=== PATIENT | male | born 1975 | race American Indian/Alaskan Native ===

== ENCOUNTER 2017-10-14 12:08 | Emergency (ER) | payer SELFPAY ==
--- NOTE | 2017-10-14 15:15 | Vascular Lab Report ---
Left Lower Extremity Venous Duplex Study: Reason for Exam: Pain and swelling of the left lower extremity. Comments on the Right: A limited duplex study was done of the proximal veins of the right lower extremity. All veins visualized are freely compressible without evidence of internal echogenicity. Flow is spontaneous and phasic throughout. No evidence of acute or chronic thrombus is seen in any of the vessels visualized. Comments on the Left: All veins visualized are freely compressible without evidence of internal echogenicity. Flow is spontaneous and phasic throughout. No evidence of acute or chronic thrombus is seen in any of the vessels visualized. Inguinal adenopathy is noted. Impression: No evidence of acute or chronic deep venous thrombosis in the left lower extremity.
--- NOTE | 2017-10-14 15:53 | Emergency Department Report ---
Chief Complaint: Extremity Problem,Nontraumatic Stated Complaint: LEG SWELLING Time Seen by Provider: 10/14/17 13:02 - HPI History of Present Illness: is a 42-year-old after [place] male whose presenting with right legs swelling. Patient states that his left leg is more swollen than his right leg over the last 2 days. Patient denies any pain. Patient states that patient denies any trauma patient denies any fever as well as nausea vomiting diarrhea body ache and cough chest pain shortness of breath. Patient states that the leg feels tight and he has 5 out of 10 pain. Patient has a past medical history of diabetes and is on oral anti-hyperglycemic agents - Exam Vital Signs: Vital Signs 10/14/17 12:10 Temperature 97.8 F Pulse Rate 104 H Respiratory 16 Rate Blood Pressure 153/100 Blood Pressure 153/100 [Left] O2 Sat by Pulse 100 Oximetry Physical Exam: General exam normal no acute distress HEENT is within normal limits lungs clear to auscultation heart exam S1-S2 no murmurs gallops or rubs abdomen is soft nontender lower extremity exam 2+ edema bilateral lower extremities there is significantly more swelling in the left lower extremity compared to the right skin exam there is some hyperpigmentation to the anterior sorensen consistent with a past medical history of chronic diabetes MSE screening note: Focused history and physical exam performed. Due to findings the following was ordered: ED Medical Decision Making - Radiology Data Radiology results: report reviewed No DVT seen in the left lower extremity - Medical Decision Making Patient is a 42-year-old male who is presenting with leg swelling we did discuss peripheral dependent edema and measures that will help of the patient's discomfort he will be referred to vascular surgery. Patient will also be started on low-dose Lasix for the next several days. ED Disposition for MSE Clinical Impression: Dependent edema Disposition: DC-01 TO HOME OR SELFCARE Is pt being admited?: No Does the pt Need Aspirin: No Condition: Fair Instructions: Leg Edema (ED) Prescriptions: Furosemide [Lasix] 20 mg PO QDAY 5 Days tablet HYDROcodone/ACETAMINOPHEN [[place] 5-325 Tablet] 1 each PO Q4-6H #15 tablet Referrals: PRIMARY CARE, [Primary Care Provider] - 3-5 Days
[2017-10-14 16:22] VITALS: BP 137/87
== END 2017-10-14 16:20 | disposition home or self-care (01) ==
LOC: ED 12:08
DX: M79.89 Other specified soft tissue disorders (principal)

== ENCOUNTER 2017-10-18 10:31 | Inpatient (IN) | payer SELFPAY ==
[2017-10-18 11:32] LABS: Hematocrit 39.9 % (35.5-45.6); Hemoglobin 13.3 gm/dl (11.8-15.2); Mean Corpuscular HGB Conc 33 % (32-34); Mean Corpuscular Hemoglobin 31 pg (28-32); Mean Corpuscular Volume 92 fl (84-94); Platelet Count 308 K/mm3 (140-440); Red Blood Count 4.32 M/mm3 (3.65-5.03); Red Cell Distribution Width 12.9 % (13.2-15.2); White Blood Count 9.7 K/mm3 (4.5-11.0)
[2017-10-18 11:45] LABS: Anion Gap 17 mmol/L; BUN/Creatinine Ratio 10; Blood Urea Nitrogen 9 mg/dL (9-20); Calcium 8.8 mg/dL (8.4-10.2); Carbon Dioxide 27 mmol/L (22-30); Chloride 92.4 mmol/L (98-107); Glucose 480 mg/dL (75-100); Potassium 4.1 mmol/L (3.6-5.0); Sodium 132 mmol/L (137-145)
[2017-10-18] MEDS ORDERED: NACL 0.9% 1000 ML 1,000 ML IV ONE (13:41)
[2017-10-18] MEDS ORDERED: ZOFRAN IV ONE (13:42)
[2017-10-18] MEDS ORDERED: MORPHINE IV ONE (13:42)
[2017-10-18] MEDS ORDERED: VANCOMYCIN/NS 1 GM/250 ML 1 GM/250 ML BAG IV ONE (13:43)
[2017-10-18] MEDS ORDERED: TORADOL IV ONE (13:43)
[2017-10-18] MEDS ORDERED: VANCOMYCIN 2,000 MG in NACL 0.9% 500 ML 500 ML IV SCH (14:15)
[2017-10-18] MEDS ORDERED: VANCOMYCIN 2,000 MG in NACL 0.9% 500 ML 500 ML IV ONE (14:15)
--- NOTE | 2017-10-18 14:26 | Emergency Department Report ---
ED Extremity Problem HPI - General Chief complaint: Extremity Injury, Lower Stated complaint: LEG EDEMA Time Seen by Provider: 10/18/17 13:07 Source: patient Mode of arrival: Ambulatory Limitations: No Limitations - History of Present Illness Initial comments: 42 year-old male the past medical history of [id number] diabetes presents to the hospital with complaints of worsening left leg edema and pain. Patient was seen and evaluated here on the for similar symptoms. He had a negative Doppler of the left leg and received Lasix 5 days and [place] for pain with outpt vascular f/u. He has continued to have worsening swelling and pain despite treatment. Complains of some purulent drainage from a wound on the leg. Patient states that for the past one month he has had intermittent swelling of his leg but for the last 3 days it has been gradually worsening and persistent. He initially thought maybe he was bitten by insects because he was having some drainage from his leg. He denies fever or trauma. Patient states he is compliant with his metformin and glipizide. His glucose typically in the 200-300 range.. Positive weight gain reported compared to visit days ago despite taking Lasix. Denies chest pain or shortness of breath. PMD: None Severity scale (0 -10): 8 - Related Data Previous Rx's Medication Instructions Recorded Last Taken Type Cyclobenzaprine [Flexeril] 10 mg PO TID PRN #20 tablet 07/04/16 Unknown Rx Ibuprofen [Motrin 800 MG tab] 800 mg PO Q8HR PRN #30 tablet 07/04/16 Unknown Rx Cyclobenzaprine [Flexeril] 10 mg PO TID PRN #15 tablet 09/02/16 Unknown Rx Ibuprofen [Motrin] 800 mg PO Q8HR PRN #15 tablet 09/02/16 Unknown Rx Furosemide [Lasix] 20 mg PO QDAY 5 Days tablet 10/14/17 Unknown Rx HYDROcodone/ACETAMINOPHEN [[place] 1 each PO Q4-6H #15 tablet 10/14/17 Unknown Rx 5-325 Tablet] Allergies Allergy/AdvReac Type Severity Reaction Status Date / Time No Known Allergies Allergy Verified 07/04/16 04:05 ED Review of Systems ROS: Stated complaint: LEG EDEMA Other details as noted in HPI Comment: All other systems reviewed and negative Other: Constitutional: No fevers chills Eyes: No eye pain visual changes ENT: No ear pain or throat pain Neck: Denies pain Respiratory: Denies cough wheezing shortness of breath Cardiovascular: Denies chest pain, palpitations, syncope GI: Denies abdominal pain, nausea, vomiting, diarrhea : Denies dysuria Musculoskeletal: as per hpi Skin: as per hpi Neurologic: Denies headache, numbness, weakness Psychiatric: Denies suicidal ideation, hallucinations ED Past Medical Hx - Past Medical History Hx Diabetes: Yes - Social History Smoking Status: Never Smoker Substance Use Type: None - Medications Home Medications: Home Medications Medication Instructions Recorded Confirmed Last Taken Type Cyclobenzaprine [Flexeril] 10 mg PO TID PRN #20 tablet 07/04/16 Unknown Rx Ibuprofen [Motrin 800 MG tab] 800 mg PO Q8HR PRN #30 tablet 07/04/16 Unknown Rx Cyclobenzaprine [Flexeril] 10 mg PO TID PRN #15 tablet 09/02/16 Unknown Rx Ibuprofen [Motrin] 800 mg PO Q8HR PRN #15 tablet 09/02/16 Unknown Rx Furosemide [Lasix] 20 mg PO QDAY 5 Days tablet 10/14/17 Unknown Rx HYDROcodone/ACETAMINOPHEN [[place] 1 each PO Q4-6H #15 tablet 10/14/17 Unknown Rx 5-325 Tablet] ED Physical Exam - General Limitations: No Limitations - Other Other exam information: General: No limitations, patient is alert in no acute distress Head exam: Atraumatic, normocephalic Eyes exam: Normal appearance ENT: Moist mucous membrane, normal oropharynx Neck exam: Normal inspection, full range of motion Respiratory exam: Clear to auscultation bilateral, no wheezes, rales, crackles Cardiovascular: Normal rate and rhythm, normal heart sounds Abdomen: Soft, nondistended, and nontender, with normal bowel sounds, no rebound, or guarding Extremity: Significant left leg edema with erythema, warmth, and tenderness. Circular area at the lateral left lower leg with drainage. 2+ DP pulse Back: Normal Inspection, full range of motion, no tenderness Neurologic: Alert, oriented x3, cranial nerves intact, no motor or sensory deficit Psychiatric: normal affect, normal mood Skin: Warm, dry, intactMinimal physician ED Course Vital Signs 10/18/17 10/18/17 10:47 10:53 Temperature 99 F Pulse Rate 119 H Blood Pressure 135/90 [Right] O2 Sat by Pulse 100 Oximetry - Reevaluation(s) Reevaluation #1: 10/18/17 15:20 in ed treated with Morphine zofran IV vancomycin Insulin for hyperglycemia pending labs crp lft blood cultures 10/18/17 15:27 ED Medical Decision Making - Lab Data Result diagrams: 10/18/17 10:55 10/18/17 11:03 Lab Results 10/18/17 10/18/17 10/18/17 Range/Units 10:55 11:03 14:33 WBC 9.7 (4.5-11.0) K/mm3 RBC 4.32 (3.65-5.03) M/mm3 Hgb 13.3 (11.8-15.2) gm/dl Hct 39.9 (35.5-45.6) % MCV 92 (84-94) fl MCH 31 (28-32) pg MCHC 33 (32-34) % RDW 12.9 L (13.2-15.2) % Plt Count 308 (140-440) K/mm3 ESR 65 (0-20) mm/Hr Sodium 132 L (137-145) mmol/L Potassium 4.1 (3.6-5.0) mmol/L Chloride 92.4 L (98-107) mmol/L Carbon Dioxide 27 (22-30) mmol/L Anion Gap 17 mmol/L BUN 9 (9-20) mg/dL Creatinine 0.9 (0.8-1.5) mg/dL Estimated GFR > 60 ml/min BUN/Creatinine Ratio 10 % Glucose 480 H (75-100) mg/dL Calcium 8.8 (8.4-10.2) mg/dL - Radiology Data Radiology results: image reviewed (read by me) interpreted by me: read by me xr left tib fib: soft tissue edema - Medical Decision Making Plan to admit patient to hospital for hyperglycemia with poorly controlled diabetes and cellulitis. Hospitalist informed - Differential Diagnosis cellulitis, DVT, renal failure, lymphedema Critical Care Time: No Critical care attestation.: If time is entered above; I have spent that time in minutes in the direct care of this critically ill patient, excluding procedure time. ED Disposition Clinical Impression: Left leg cellulitis, Uncontrolled diabetes mellitus, Leg edema, left Disposition: DC-09 OP ADMIT IP TO THIS HOSP Is pt being admited?: Yes Condition: Stable Time of Disposition: 14:26 (DR Plata/hosp)
--- NOTE | 2017-10-18 15:39 | XRay Report ---
FINAL REPORT PROCEDURE: XR TIBIA FIBULA 2V LT TECHNIQUE: LEFT tibia and fibula radiographs, AP and lateral views. CPT 23915 HISTORY: left leg infection COMPARISON: No prior studies are available for comparison. FINDINGS: The cortical and trabecular pattern of the tibia and fibula appears normal. There is no fracture identified. No focal bone loss or abnormal periosteal reaction is seen. There does appear to be mild subcutaneous edema present. A few small phleboliths are present in the soft tissues anterior to the tibia. Mild degenerative changes are present in the knee and in the ankle. IMPRESSION: No acute bony abnormalities are identified. Mild degenerative changes are present in the ankle and knee. No abnormal focal bone loss or abnormal periosteal reaction is seen to suggest osteomyelitis. Mild subcutaneous edema is visualized. No radiopaque foreign bodies are identified..
[2017-10-18] MEDS ORDERED: FLEXERIL PO PRN (16:44)
[2017-10-18] MEDS ORDERED: MOTRIN PO PRN (16:44)
--- NOTE | 2017-10-18 16:44 | History and Physical Report ---
History of Present Illness Date of examination: 10/18/17 Date of admission: 10/18/17 14:26 Chief complaint: CC: L leg swelling and drainage for 3 days History of present illness: History of Present Illness 42 year-old male the past medical history of [id number] diabetes presents to the hospital with complaints of worsening left leg edema and pain. Patient was seen and evaluated here on the for similar symptoms. He had a negative Doppler of the left leg and received Lasix 5 days and [place] for pain with outpt vascular f/u. He has continued to have worsening swelling and pain despite treatment. Complains of some purulent drainage from a wound on the leg. Patient states that for the past one month he has had intermittent swelling of his leg but for the last 3 days it has been gradually worsening and persistent. He initially thought maybe he was bitten by insects because he was having some drainage from his leg. He denies fever or trauma. Patient states he is compliant with his metformin and glipizide. His glucose typically in the 200-300 range.. Positive weight gain reported compared to visit days ago despite taking Lasix. Denies chest pain or shortness of breath. PMD: None Severity scale (0 -10): 8 Past Medical History Hx Diabetes: Yes Social History Smoking Status: Never Smoker Substance Use Type: None Medications Home Medications: Home Medications Medication Instructions Recorded Confirmed Last Taken Type Cyclobenzaprine [Flexeril] 10 mg PO TID PRN #20 tablet 07/04/16 Unknown Rx Ibuprofen [Motrin 800 MG tab] 800 mg PO Q8HR PRN #30 tablet 07/04/16 Unknown Rx Cyclobenzaprine [Flexeril] 10 mg PO TID PRN #15 tablet 09/02/16 Unknown Rx Ibuprofen [Motrin] 800 mg PO Q8HR PRN #15 tablet 09/02/16 Unknown Rx Furosemide [Lasix] 20 mg PO QDAY 5 Days tablet 10/14/17 Unknown Rx HYDROcodone/ACETAMINOPHEN [[place] 1 each PO Q4-6H #15 tablet 10/14/17 Unknown Rx 5-325 Tablet] Review of Systems Stated complaint: LEG EDEMA Other details as noted in HPI Comment: All other systems reviewed and negative Other: Constitutional: No fevers chills Eyes: No eye pain visual changes ENT: No ear pain or throat pain Neck: Denies pain Respiratory: Denies cough wheezing shortness of breath Cardiovascular: Denies chest pain, palpitations, syncope GI: Denies abdominal pain, nausea, vomiting, diarrhea : Denies dysuria Musculoskeletal: as per hpi Skin: as per hpi Neurologic: Denies headache, numbness, weakness Psychiatric: Denies suicidal ideation, hallucinations Medications and Allergies Allergies Allergy/AdvReac Type Severity Reaction Status Date / Time No Known Allergies Allergy Verified 07/04/16 04:05 Home Medications Medication Instructions Recorded Confirmed Last Taken Type Cyclobenzaprine [Flexeril] 10 mg PO TID PRN #20 tablet 07/04/16 10/18/17 Unknown Rx Ibuprofen [Motrin 800 MG tab] 800 mg PO Q8HR PRN #30 tablet 07/04/16 10/18/17 Unknown Rx Cyclobenzaprine [Flexeril] 10 mg PO TID PRN #15 tablet 09/02/16 10/18/17 Unknown Rx Ibuprofen [Motrin] 800 mg PO Q8HR PRN #15 tablet 09/02/16 10/18/17 Unknown Rx Furosemide [Lasix] 20 mg PO QDAY 5 Days tablet 10/14/17 10/18/17 Unknown Rx HYDROcodone/ACETAMINOPHEN [[place] 1 each PO Q4-6H #15 tablet 10/14/17 10/18/17 Unknown Rx 5-325 Tablet] Exam - Constitutional Vitals: Temp Pulse Resp BP Pulse Ox 100.0 F H 104 H 16 126/78 98 10/18/17 16:11 10/18/17 16:11 10/18/17 16:11 10/18/17 16:11 10/18/17 16:11 General appearance: Present: no acute distress, well-nourished - EENT Eyes: Present: PERRL ENT: hearing intact, clear oral mucosa - Neck Neck: Present: supple, normal ROM - Respiratory Respiratory effort: normal Respiratory: bilateral: CTA - Cardiovascular Heart rate: 80 Rhythm: regular Heart Sounds: Present: S1 & S2. Absent: rub, click - Extremities Extremities: no ischemia, pulses intact, pulses symmetrical, No edema, abnormal (LLE red and Hyperpigmented from Mid Calf to ankle) Peripheral Pulses: within normal limits - Abdominal General gastrointestinal: Present: soft, non-tender, non-distended, normal bowel sounds Male genitourinary: Present: normal - Integumentary Integumentary: Present: clear, warm, dry - Musculoskeletal Musculoskeletal: gait normal, strength equal bilaterally - Psychiatric Psychiatric: appropriate mood/affect, intact judgment & insight - Neurologic Neurologic: CNII-XII intact, moves all extremities - Allied Health Allied health notes reviewed: nursing, case management Results - Labs CBC & Chem 7: 10/19/17 05:08 10/19/17 05:08 Labs: Laboratory Last Values WBC 9.7 K/mm3 (4.5-11.0) 10/18/17 10:55 RBC 4.32 M/mm3 (3.65-5.03) 10/18/17 10:55 Hgb 13.3 gm/dl (11.8-15.2) 10/18/17 10:55 Hct 39.9 % (35.5-45.6) 10/18/17 10:55 MCV 92 fl (84-94) 10/18/17 10:55 MCH 31 pg (28-32) 10/18/17 10:55 MCHC 33 % (32-34) 10/18/17 10:55 RDW 12.9 % (13.2-15.2) L 10/18/17 10:55 Plt Count 308 K/mm3 (140-440) 10/18/17 10:55 ESR 65 mm/Hr (0-20) 10/18/17 14:33 Sodium 132 mmol/L (137-145) L 10/18/17 11:03 Potassium 4.1 mmol/L (3.6-5.0) 10/18/17 11:03 Chloride 92.4 mmol/L (98-107) L 10/18/17 11:03 Carbon Dioxide 27 mmol/L (22-30) 10/18/17 11:03 Anion Gap 17 mmol/L 10/18/17 11:03 BUN 9 mg/dL (9-20) 10/18/17 11:03 Creatinine 0.9 mg/dL (0.8-1.5) 10/18/17 11:03 Estimated GFR > 60 ml/min 10/18/17 11:03 BUN/Creatinine Ratio 10 % 10/18/17 11:03 Glucose 480 mg/dL (75-100) H 10/18/17 11:03 Calcium 8.8 mg/dL (8.4-10.2) 10/18/17 11:03 C-Reactive Protein 30.90 mg/dL (0.00-1.30) H 10/18/17 14:33 Short CBC 10/18/17 10/19/17 Range/Units 10:55 05:08 WBC 9.7 8.2 (4.5-11.0) K/mm3 Hgb 13.3 11.8 (11.8-15.2) gm/dl Hct 39.9 35.8 (35.5-45.6) % Plt Count 308 292 (140-440) K/mm3 BMP 10/18/17 10/19/17 11:03 05:08 Sodium 132 L 140 D Potassium 4.1 3.7 Chloride 92.4 L 100.6 Carbon Dioxide 27 26 BUN 9 7 L Creatinine 0.9 0.8 Glucose 480 H 259 H Calcium 8.8 8.3 L Liver Function 10/19/17 Range/Units 05:08 Total Bilirubin 0.60 (0.1-1.2) mg/dL AST 15 (5-40) units/L ALT 26 (7-56) units/L Alkaline Phosphatase 72 (35-129) units/L Albumin 2.8 L (3.9-5) g/dL Assessment and Plan Advance Directives: Yes (Full code) VTE prophylaxis?: Chemical Plan of care discussed with patient/family: Yes - Patient Problems (1) Left leg cellulitis Current Visit: Yes Status: Acute Plan to address problem: Started on Unasyn and Vanco Will get ID and surgery consult (2) Leg edema, left Current Visit: Yes Status: Acute Plan to address problem: Doppler negative for DVT.Done couple of days ago. (3) Uncontrolled diabetes mellitus Current Visit: Yes Status: Chronic Qualifiers: Diabetes mellitus type: type 2 Plan to address problem: Adjust meds. May benefit from Lantus qhs 15 units (4) DVT prophylaxis Current Visit: Yes Status: Acute Plan to address problem: On Lovenox
[2017-10-18] MEDS ORDERED: DULCOLAX PR PRN (16:46)
[2017-10-18] MEDS ORDERED: MORPHINE IV PRN (16:46)
[2017-10-18] MEDS ORDERED: TYLENOL PO PRN (16:46)
[2017-10-18] MEDS ORDERED: MILK OF MAGNESIA PO PRN (16:46)
[2017-10-18] MEDS ORDERED: ZOFRAN IV PRN (16:46)
[2017-10-18] MEDS ORDERED: NORCO 5/325 PO PRN (17:00)
[2017-10-18] MEDS ORDERED: VANCOMYCIN PHARMACY TO DOSE IV SCH (18:00)
[2017-10-18] MEDS: UNASYN/NS 3 GM/100 ML 3 GM/100 ML BAG IV SCH ×2 (18:39→23:58)
[2017-10-18] MEDS: PEPCID IV SCH (21:04)
[2017-10-18] MEDS ORDERED: AMBIEN PO PRN (22:00)
[2017-10-18] MEDS: VANCOMYCIN VIAL 1,750 MG in NACL 0.9% 500 ML 500 ML IV SCH (22:11)
[2017-10-18] MEDS: NOVOLOG SUB-Q SCH (22:12)
[2017-10-19] MEDS: UNASYN/NS 3 GM/100 ML 3 GM/100 ML BAG IV SCH ×2 (05:32→19:53)
[2017-10-19 05:52] LABS: Basophils % (Auto) 0.2 % (0.0-1.8); Eosinophils % (Auto) 1.1 % (0.0-4.3); Hematocrit 35.8 % (35.5-45.6); Hemoglobin 11.8 gm/dl (11.8-15.2); Mean Corpuscular HGB Conc 33 % (32-34); Mean Corpuscular Hemoglobin 31 pg (28-32); Mean Corpuscular Volume 92 fl (84-94); Platelet Count 292 K/mm3 (140-440); Red Blood Count 3.88 M/mm3 (3.65-5.03); Red Cell Distribution Width 12.9 % (13.2-15.2); White Blood Count 8.2 K/mm3 (4.5-11.0)
[2017-10-19 06:12] LABS: Alanine Aminotransferase 26 units/L (7-56); Albumin 2.8 g/dL (3.9-5); Albumin/Globulin Ratio 0.8 %; Alkaline Phosphatase 72 units/L (35-129); Anion Gap 17 mmol/L; BUN/Creatinine Ratio 9; Blood Urea Nitrogen 7 mg/dL (9-20); Calcium 8.3 mg/dL (8.4-10.2); Carbon Dioxide 26 mmol/L (22-30); Chloride 100.6 mmol/L (98-107); Glucose 259 mg/dL (75-100); Potassium 3.7 mmol/L (3.6-5.0); Sodium 140 mmol/L (137-145); Total Protein 6.5 g/dL (6.3-8.2)
[2017-10-19] MEDS: VANCOMYCIN VIAL 1,750 MG in NACL 0.9% 500 ML 500 ML IV SCH ×3 (07:58→23:04)
--- NOTE | 2017-10-19 08:40 | Progress Note ---
<FLORENCE VIVEROS - Last Filed: 10/19/17 14:11> Assessment and Plan Assessment and plan: Patient is a 42 year-old male the past medical history of [id number] diabetes presents to the hospital with complaints of worsening left leg edema and pain. Patient was seen and evaluated here on the for similar symptoms. Left leg cellulitis Secondary to uncontrolled DM Continue on Unasyn and Vanco Infectious diseases following Surgery consult for possible incision and drainage of abscess wound care consult Sepsis Blood culture collected prior to antibiotic Follow blood cultures Continue empiric IV Unasyn and vancomycin Infectious diseases following Supportive care Leg edema, left DVT ruled out Unremarkable Doppler Unrmarkable Xray, no osteomyelitis Uncontrolled diabetes mellitus Patient A1c >17; diabetic education and nutrition is consult Patient insulin adjusted Accu-Chek before meals and at bedtime Sliding scale Insulin/NovoLog Continue Lantus qhs 15 units Malnutrition Nutrition consult DVT prophylaxis On Lovenox History Interval history: Patient complains left leg pain and rated his pain level 8/10. denies chest pain and shortness of breath.Labs and nursing notes reviewed. Hospitalist Physical - Constitutional Vitals: Temp Pulse Resp BP Pulse Ox 99.3 F 92 H 20 110/75 97 10/19/17 00:01 10/19/17 00:01 10/19/17 00:01 10/19/17 00:01 10/19/17 00:01 General appearance: Present: no acute distress - EENT Eyes: Present: PERRL ENT: hearing intact - Neck Neck: Present: supple - Respiratory Respiratory effort: normal Respiratory: bilateral: CTA - Cardiovascular Rhythm: regular Heart Sounds: Present: S1 & S2 - Extremities Extremity abnormal: other (Left leg wound) - Abdominal General gastrointestinal: soft, non-tender - Integumentary Integumentary: Present: clear (Left leg wound), warm, dry - Psychiatric Psychiatric: appropriate mood/affect - Neurologic Neurologic: moves all extremities - Allied Health Allied health notes reviewed: nursing Results - Labs CBC & Chem 7: 10/19/17 05:08 10/19/17 05:08 Labs: Laboratory Last Values WBC 8.2 K/mm3 (4.5-11.0) 10/19/17 05:08 RBC 3.88 M/mm3 (3.65-5.03) 10/19/17 05:08 Hgb 11.8 gm/dl (11.8-15.2) 10/19/17 05:08 Hct 35.8 % (35.5-45.6) 10/19/17 05:08 MCV 92 fl (84-94) 10/19/17 05:08 MCH 31 pg (28-32) 10/19/17 05:08 MCHC 33 % (32-34) 10/19/17 05:08 RDW 12.9 % (13.2-15.2) L 10/19/17 05:08 Plt Count 292 K/mm3 (140-440) 10/19/17 05:08 Lymph % (Auto) 21.0 % (13.4-35.0) 10/19/17 05:08 [place] % (Auto) 10.3 % (0.0-7.3) H 10/19/17 05:08 Eos % (Auto) 1.1 % (0.0-4.3) 10/19/17 05:08 Baso % (Auto) 0.2 % (0.0-1.8) 10/19/17 05:08 Lymph # 1.7 K/mm3 (1.2-5.4) 10/19/17 05:08 [place] # 0.8 K/mm3 (0.0-0.8) 10/19/17 05:08 Eos # 0.1 K/mm3 (0.0-0.4) 10/19/17 05:08 Baso # 0.0 K/mm3 (0.0-0.1) 10/19/17 05:08 Seg Neutrophils % 67.4 % (40.0-70.0) 10/19/17 05:08 Seg Neutrophils # 5.5 K/mm3 (1.8-7.7) 10/19/17 05:08 ESR 65 mm/Hr (0-20) 10/18/17 14:33 Sodium 140 mmol/L (137-145) D 10/19/17 05:08 Potassium 3.7 mmol/L (3.6-5.0) 10/19/17 05:08 Chloride 100.6 mmol/L (98-107) 10/19/17 05:08 Carbon Dioxide 26 mmol/L (22-30) 10/19/17 05:08 Anion Gap 17 mmol/L 10/19/17 05:08 BUN 7 mg/dL (9-20) L 10/19/17 05:08 Creatinine 0.8 mg/dL (0.8-1.5) 10/19/17 05:08 Estimated GFR > 60 ml/min 10/19/17 05:08 BUN/Creatinine Ratio 9 % 10/19/17 05:08 Glucose 259 mg/dL (75-100) H 10/19/17 05:08 POC Glucose 228 (70-105) H 10/19/17 06:38 Hemoglobin A1c 17.0 % (4-6) H 10/19/17 05:08 Calcium 8.3 mg/dL (8.4-10.2) L 10/19/17 05:08 Total Bilirubin 0.60 mg/dL (0.1-1.2) 10/19/17 05:08 AST 15 units/L (5-40) 10/19/17 05:08 ALT 26 units/L (7-56) 10/19/17 05:08 Alkaline Phosphatase 72 units/L (35-129) 10/19/17 05:08 C-Reactive Protein 30.90 mg/dL (0.00-1.30) H 10/18/17 14:33 Total Protein 6.5 g/dL (6.3-8.2) 10/19/17 05:08 Albumin 2.8 g/dL (3.9-5) L 10/19/17 05:08 Albumin/Globulin Ratio 0.8 % 10/19/17 05:08 <AALIYAH DSOUZA - Last Filed: 10/19/17 17:06> Hospitalist Physical - Constitutional Vitals: Temp Pulse Resp BP Pulse Ox 97.9 F 97 H 18 113/79 100 10/19/17 15:37 10/19/17 15:37 10/19/17 15:37 10/19/17 15:37 10/19/17 15:37 Results - Labs CBC & Chem 7: 10/19/17 05:08 10/19/17 05:08 Labs: Laboratory Last Values WBC 8.2 K/mm3 (4.5-11.0) 10/19/17 05:08 RBC 3.88 M/mm3 (3.65-5.03) 10/19/17 05:08 Hgb 11.8 gm/dl (11.8-15.2) 10/19/17 05:08 Hct 35.8 % (35.5-45.6) 10/19/17 05:08 MCV 92 fl (84-94) 10/19/17 05:08 MCH 31 pg (28-32) 10/19/17 05:08 MCHC 33 % (32-34) 10/19/17 05:08 RDW 12.9 % (13.2-15.2) L 10/19/17 05:08 Plt Count 292 K/mm3 (140-440) 10/19/17 05:08 Lymph % (Auto) 21.0 % (13.4-35.0) 10/19/17 05:08 [place] % (Auto) 10.3 % (0.0-7.3) H 10/19/17 05:08 Eos % (Auto) 1.1 % (0.0-4.3) 10/19/17 05:08 Baso % (Auto) 0.2 % (0.0-1.8) 10/19/17 05:08 Lymph # 1.7 K/mm3 (1.2-5.4) 10/19/17 05:08 [place] # 0.8 K/mm3 (0.0-0.8) 10/19/17 05:08 Eos # 0.1 K/mm3 (0.0-0.4) 10/19/17 05:08 Baso # 0.0 K/mm3 (0.0-0.1) 10/19/17 05:08 Seg Neutrophils % 67.4 % (40.0-70.0) 10/19/17 05:08 Seg Neutrophils # 5.5 K/mm3 (1.8-7.7) 10/19/17 05:08 ESR 65 mm/Hr (0-20) 10/18/17 14:33 Sodium 140 mmol/L (137-145) D 10/19/17 05:08 Potassium 3.7 mmol/L (3.6-5.0) 10/19/17 05:08 Chloride 100.6 mmol/L (98-107) 10/19/17 05:08 Carbon Dioxide 26 mmol/L (22-30) 10/19/17 05:08 Anion Gap 17 mmol/L 10/19/17 05:08 BUN 7 mg/dL (9-20) L 10/19/17 05:08 Creatinine 0.8 mg/dL (0.8-1.5) 10/19/17 05:08 Estimated GFR > 60 ml/min 10/19/17 05:08 BUN/Creatinine Ratio 9 % 10/19/17 05:08 Glucose 259 mg/dL (75-100) H 10/19/17 05:08 POC Glucose 278 (70-105) H 10/19/17 15:41 Hemoglobin A1c 17.0 % (4-6) H 10/19/17 05:08 Calcium 8.3 mg/dL (8.4-10.2) L 10/19/17 05:08 Total Bilirubin 0.60 mg/dL (0.1-1.2) 10/19/17 05:08 AST 15 units/L (5-40) 10/19/17 05:08 ALT 26 units/L (7-56) 10/19/17 05:08 Alkaline Phosphatase 72 units/L (35-129) 10/19/17 05:08 C-Reactive Protein 30.90 mg/dL (0.00-1.30) H 10/18/17 14:33 Total Protein 6.5 g/dL (6.3-8.2) 10/19/17 05:08 Albumin 2.8 g/dL (3.9-5) L 10/19/17 05:08 Albumin/Globulin Ratio 0.8 % 10/19/17 05:08
[2017-10-19] MEDS: NOVOLOG SUB-Q SCH ×4 (08:57→23:03)
[2017-10-19] MEDS: PEPCID IV SCH ×2 (09:20→21:23)
[2017-10-19] MEDS: LASIX PO SCH (09:23)
--- NOTE | 2017-10-19 12:43 | Consultation ---
History of Present Illness - Reason for Consult Consult date: 10/19/17 leg cellulitis Requesting physician: MADISON HYDE - History of Present Illness 42 years old male with history of diabetes on metformin and glipizide, admitted on 10/18/17 due to 4 days history of worsening left lower extremity edema, erythema and tenderness. Patient reports that he has chronic left leg edema. The etiology of leg edema is unclear. He reports, 3 days before admission, he noticed what it looked like an spider bite, and then noted purulent drainage. Denies any fever or chills. Denies any trauma or injury to the leg. His glucose at home between 200-300s. In the emergency room, initial temperature was 99 which then went up to 100. Heart rate 119. Pressure 135/90. He showed white count 9.7. Hemoglobin 13.3. Platelets 308. Creatinine 0.9. CRP=30.9. Microbiology: Blood cultures: 10/18 ngtd Urine cultures: Current Antimicrobials: Unasyn 10/18 Vancomycin 10/18 Previous Antimicrobials: Past History Past Medical History: diabetes Past Surgical History: No surgical history Social history: no significant social history Family history: no significant family history Medications and Allergies Allergies Allergy/AdvReac Type Severity Reaction Status Date / Time No Known Allergies Allergy Verified 07/04/16 04:05 Home Medications Medication Instructions Recorded Confirmed Last Taken Type Cyclobenzaprine [Flexeril] 10 mg PO TID PRN #20 tablet 07/04/16 10/18/17 Unknown Rx Ibuprofen [Motrin 800 MG tab] 800 mg PO Q8HR PRN #30 tablet 07/04/16 10/18/17 Unknown Rx Cyclobenzaprine [Flexeril] 10 mg PO TID PRN #15 tablet 09/02/16 10/18/17 Unknown Rx Ibuprofen [Motrin] 800 mg PO Q8HR PRN #15 tablet 09/02/16 10/18/17 Unknown Rx Furosemide [Lasix] 20 mg PO QDAY 5 Days tablet 10/14/17 10/18/17 Unknown Rx HYDROcodone/ACETAMINOPHEN [[place] 1 each PO Q4-6H #15 tablet 10/14/17 10/18/17 Unknown Rx 5-325 Tablet] Active Meds: Active Medications Acetaminophen (Tylenol) 650 mg PO Q4H PRN PRN Reason: Pain MILD(1-3)/Fever >100.5/SHUKLA Acetaminophen/Hydrocodone Bitart ([place] 5/325) 1 each PO Q4H PRN PRN Reason: MODERATE PAIN Last Admin: 10/19/17 05:32 Dose: 1 each Bisacodyl (Dulcolax) 10 mg ME QDAY PRN PRN Reason: Constipation unrelieved by MOM Cyclobenzaprine HCl (Flexeril) 10 mg PO TID PRN PRN Reason: Muscle Spasm Famotidine (Pepcid) 20 mg IV BID [facility] Last Admin: 10/19/17 09:20 Dose: 20 mg Furosemide (Lasix) 20 mg PO QDAY [facility] Last Admin: 10/19/17 09:23 Dose: 20 mg Ampicillin Sodium/Sulbactam Sodium (Unasyn/Ns 3 Gm/100 Ml) 3 gm in 100 mls @ 100 mls/hr IV Q6HR [facility] PRN Reason: Protocol Last Admin: 10/19/17 05:32 Dose: 100 mls/hr Vancomycin HCl 1,750 mg/ (Sodium Chloride) 500 mls @ 333.333 mls/hr IV Q8H [facility] Last Admin: 10/19/17 07:58 Dose: 333.333 mls/hr Ibuprofen (Motrin) 800 mg PO Q8H PRN PRN Reason: moderate pain Insulin Aspart (Novolog) 0 units SUB-Q ACHS [facility] PRN Reason: Protocol Last Admin: 10/19/17 08:57 Dose: 3 units Insulin Detemir (Levemir) 30 units SUB-Q QAMDIAB [facility] Magnesium Hydroxide (Milk Of Magnesia) 30 ml PO Q4H PRN PRN Reason: Constipation Morphine Sulfate (Morphine) 4 mg IV Q4H PRN PRN Reason: Pain , Severe (7-10) Ondansetron HCl (Zofran) 4 mg IV Q8H PRN PRN Reason: N/V unrelieved by Reglan Vancomycin HCl (Vancomycin Pharmacy To Dose) 1 each IV PKCONSULT [facility] PRN Reason: Protocol Zolpidem Tartrate (Ambien) 5 mg PO QHS PRN PRN Reason: Insomnia Review of Systems All systems: negative (as per HPI rest neg) Physical Examination - Physical Exam Narrative exam: General appearance: Alert in NAD, conversant Eyes: anicteric sclerae, moist conjunctivae; no lid-lag; PERRLA HENT: Atraumatic; oropharynx clear with moist mucous membranes and no mucosal ulcerations/no oral thrush; normal hard and soft palate. Normal external ears. Neck: Trachea midline; supple, no thyromegaly or lymphadenopathy Lungs: CTA, with normal respiratory effort and no intercostal retractions CV: RRR, no murmurs Abdomen: Soft, non-tender; no masses or hepatosplenomegaly Extremities: +left lateral calf marked edema, tenderness, open wound with slough draining purulence Skin: Normal temperature, turgor and texture; no rash, ulcers or subcutaneous nodules Psych: Appropriate affect, alert and oriented to person, place and time. Neuro: alert and oriented x 3. Moving all extermities Lines: No CVL / PICC - Constitutional Vitals: Vital Signs Temp Pulse Resp BP Pulse Ox 99.3 F 92 H 20 110/75 97 10/19/17 00:01 10/19/17 00:01 10/19/17 00:01 10/19/17 00:01 10/19/17 00:01 Temperature -Last 24 Hours Temperature 99.3 F Temperature 99.7 F Temperature 100.0 F Results - Labs CBC & Chem 7: 10/19/17 05:08 10/19/17 05:08 Labs: Abnormal lab results 10/18/17 10/18/17 10/19/17 Range/Units 14:33 21:38 05:08 RDW 12.9 L (13.2-15.2) % [place] % (Auto) 10.3 H (0.0-7.3) % BUN (9-20) mg/dL Glucose (75-100) mg/dL POC Glucose 401 H (70-105) Hemoglobin A1c (4-6) % Calcium (8.4-10.2) mg/dL C-Reactive Protein 30.90 H (0.00-1.30) mg/dL Albumin (3.9-5) g/dL 10/19/17 10/19/17 10/19/17 Range/Units 05:08 05:08 06:38 RDW (13.2-15.2) % [place] % (Auto) (0.0-7.3) % BUN 7 L (9-20) mg/dL Glucose 259 H (75-100) mg/dL POC Glucose 228 H (70-105) Hemoglobin A1c 17.0 H (4-6) % Calcium 8.3 L (8.4-10.2) mg/dL C-Reactive Protein (0.00-1.30) mg/dL Albumin 2.8 L (3.9-5) g/dL 12/18/17 Range/Units 11:16 RDW (13.2-15.2) % [place] % (Auto) (0.0-7.3) % BUN (9-20) mg/dL Glucose (75-100) mg/dL POC Glucose 253 H (70-105) Hemoglobin A1c (4-6) % Calcium (8.4-10.2) mg/dL C-Reactive Protein (0.00-1.30) mg/dL Albumin (3.9-5) g/dL Assessment and Plan Assessment: 1) Sepsis: Present on admission, manifested by fever, tachycardia. Etiology most likely left calf abscess/cellulitis. 2) Left lateral calf abscess / cellulitis 3) Diabetes-uncontrolled A1C=17 4) Plan: -follow-up blood cultures, urine culture -obtain CT scan leg -wound care -leg elevation -continue unasyn and vancomycin -strict diabetes control Thank you for your consultation, will follow up with you. Shoshana Lockwood MD Infectious Diseases Specialist [facility] ([facility]) M [phone] O [phone]
[2017-10-19] MEDS ORDERED: DILAUDID IV ONE ×2 (13:18→14:00)
[2017-10-19] MEDS ORDERED: XYLOCAINE 2% INFILTRATI ONE (13:18)
--- NOTE | 2017-10-19 13:38 | Consultation ---
History of Present Illness Consult date: 10/19/17 Chief complaint: lef leg swelling, drainage from wound - History of present illness History of present illness: 42-year-old male with past medical history diabetes mellitus who comes to the hospital with complaints of left lower extremity swelling and a wound near his ankle is been draining blood and pus. He also has pain in his left leg. The pain is mainly around the ankle. It does not radiate. He is unable to ambulate secondary to the pain and swelling. The patient states that he started noticing increasing swelling in his left leg several days ago and presented to the hospital. At that time he only noted swelling and a venous duplex of his left lower extremity was obtained which showed no evidence of DVT. One day ago he noted a wound on the outer portion of his ankle that was draining blood and some pus. He is not aware of any trauma to the area and does not remember if he got bit by an insect. He denies fevers/chills, nausea, vomiting, chest pain, shortness of breath. Past History Past Medical History: diabetes Past Surgical History: No surgical history Social history: no significant social history Family history: no significant family history Medications and Allergies Allergies Allergy/AdvReac Type Severity Reaction Status Date / Time No Known Allergies Allergy Verified 07/04/16 04:05 Home Medications Medication Instructions Recorded Confirmed Last Taken Type Cyclobenzaprine [Flexeril] 10 mg PO TID PRN #20 tablet 07/04/16 10/18/17 Unknown Rx Ibuprofen [Motrin 800 MG tab] 800 mg PO Q8HR PRN #30 tablet 07/04/16 10/18/17 Unknown Rx Cyclobenzaprine [Flexeril] 10 mg PO TID PRN #15 tablet 09/02/16 10/18/17 Unknown Rx Ibuprofen [Motrin] 800 mg PO Q8HR PRN #15 tablet 09/02/16 10/18/17 Unknown Rx Furosemide [Lasix] 20 mg PO QDAY 5 Days tablet 10/14/17 10/18/17 Unknown Rx HYDROcodone/ACETAMINOPHEN [[place] 1 each PO Q4-6H #15 tablet 10/14/17 10/18/17 Unknown Rx 5-325 Tablet] Active Meds: Active Medications Acetaminophen (Tylenol) 650 mg PO Q4H PRN PRN Reason: Pain MILD(1-3)/Fever >100.5/SHUKLA Acetaminophen/Hydrocodone Bitart ([place] 5/325) 1 each PO Q4H PRN PRN Reason: MODERATE PAIN Last Admin: 10/19/17 05:32 Dose: 1 each Bisacodyl (Dulcolax) 10 mg NE QDAY PRN PRN Reason: Constipation unrelieved by MOM Cyclobenzaprine HCl (Flexeril) 10 mg PO TID PRN PRN Reason: Muscle Spasm Famotidine (Pepcid) 20 mg IV BID [facility] Last Admin: 10/19/17 09:20 Dose: 20 mg Furosemide (Lasix) 20 mg PO QDAY [facility] Last Admin: 10/19/17 09:23 Dose: 20 mg Hydromorphone HCl (Dilaudid) 2 mg IV ONCE ONE Stop: 10/19/17 14:01 Ampicillin Sodium/Sulbactam Sodium (Unasyn/Ns 3 Gm/100 Ml) 3 gm in 100 mls @ 100 mls/hr IV Q6HR [facility] PRN Reason: Protocol Last Admin: 10/19/17 05:32 Dose: 100 mls/hr Vancomycin HCl 1,750 mg/ (Sodium Chloride) 500 mls @ 333.333 mls/hr IV Q8H [facility] Last Admin: 10/19/17 07:58 Dose: 333.333 mls/hr Ibuprofen (Motrin) 800 mg PO Q8H PRN PRN Reason: moderate pain Insulin Aspart (Novolog) 0 units SUB-Q ACHS [facility] PRN Reason: Protocol Last Admin: 10/19/17 08:57 Dose: 3 units Insulin Detemir (Levemir) 30 units SUB-Q QAMDIAB [facility] Magnesium Hydroxide (Milk Of Magnesia) 30 ml PO Q4H PRN PRN Reason: Constipation Morphine Sulfate (Morphine) 4 mg IV Q4H PRN PRN Reason: Pain , Severe (7-10) Ondansetron HCl (Zofran) 4 mg IV Q8H PRN PRN Reason: N/V unrelieved by Reglan Vancomycin HCl (Vancomycin Pharmacy To Dose) 1 each IV PKCONSULT [facility] PRN Reason: Protocol Zolpidem Tartrate (Ambien) 5 mg PO QHS PRN PRN Reason: Insomnia Review of Systems All systems: negative (see hpi) Exam Vital Signs Temp Pulse Pulse Ox 99 F 119 H 100 10/18/17 10:47 10/18/17 10:47 10/18/17 10:47 Narrative exam: General: Awake, alert, oriented 3. No apparent distress Extremities: Left lower extremity is edematous, greater than right lower extremity. There is 3+ pitting edema at the ankle of the left lower extremity. There is a 5 cm x 4 cm area of fluctuance over the lateral malleolus with pinpoint openings draining purulent fluid. There is induration around the ankle circumferentially and tenderness to palpation. The extremity is warm. Results - Labs 10/19/17 05:08 10/19/17 05:08 Abnormal lab results 10/18/17 10/18/17 10/19/17 Range/Units 14:33 21:38 05:08 RDW 12.9 L (13.2-15.2) % [place] % (Auto) 10.3 H (0.0-7.3) % BUN (9-20) mg/dL Glucose (75-100) mg/dL POC Glucose 401 H (70-105) Hemoglobin A1c (4-6) % Calcium (8.4-10.2) mg/dL C-Reactive Protein 30.90 H (0.00-1.30) mg/dL Albumin (3.9-5) g/dL 10/19/17 10/19/17 10/19/17 Range/Units 05:08 05:08 06:38 RDW (13.2-15.2) % [place] % (Auto) (0.0-7.3) % BUN 7 L (9-20) mg/dL Glucose 259 H (75-100) mg/dL POC Glucose 228 H (70-105) Hemoglobin A1c 17.0 H (4-6) % Calcium 8.3 L (8.4-10.2) mg/dL C-Reactive Protein (0.00-1.30) mg/dL Albumin 2.8 L (3.9-5) g/dL 10/19/17 Range/Units 11:16 RDW (13.2-15.2) % [place] % (Auto) (0.0-7.3) % BUN (9-20) mg/dL Glucose (75-100) mg/dL POC Glucose 253 H (70-105) Hemoglobin A1c (4-6) % Calcium (8.4-10.2) mg/dL C-Reactive Protein (0.00-1.30) mg/dL Albumin (3.9-5) g/dL Diabetes panel 10/19/17 10/19/17 Range/Units 05:08 05:08 Sodium 140 D (137-145) mmol/L Potassium 3.7 (3.6-5.0) mmol/L Chloride 100.6 (98-107) mmol/L Carbon Dioxide 26 (22-30) mmol/L BUN 7 L (9-20) mg/dL Creatinine 0.8 (0.8-1.5) mg/dL Glucose 259 H (75-100) mg/dL Hemoglobin A1c 17.0 H (4-6) % Calcium 8.3 L (8.4-10.2) mg/dL AST 15 (5-40) units/L ALT 26 (7-56) units/L Alkaline Phosphatase 72 (35-129) units/L Total Protein 6.5 (6.3-8.2) g/dL Albumin 2.8 L (3.9-5) g/dL Calcium panel 10/19/17 Range/Units 05:08 Calcium 8.3 L (8.4-10.2) mg/dL Albumin 2.8 L (3.9-5) g/dL Pituitary panel 10/19/17 Range/Units 05:08 Sodium 140 D (137-145) mmol/L Potassium 3.7 (3.6-5.0) mmol/L Chloride 100.6 (98-107) mmol/L Carbon Dioxide 26 (22-30) mmol/L BUN 7 L (9-20) mg/dL Creatinine 0.8 (0.8-1.5) mg/dL Glucose 259 H (75-100) mg/dL Calcium 8.3 L (8.4-10.2) mg/dL Adrenal panel 10/19/17 Range/Units 05:08 Sodium 140 D (137-145) mmol/L Potassium 3.7 (3.6-5.0) mmol/L Chloride 100.6 (98-107) mmol/L Carbon Dioxide 26 (22-30) mmol/L BUN 7 L (9-20) mg/dL Creatinine 0.8 (0.8-1.5) mg/dL Glucose 259 H (75-100) mg/dL Calcium 8.3 L (8.4-10.2) mg/dL Total Bilirubin 0.60 (0.1-1.2) mg/dL AST 15 (5-40) units/L ALT 26 (7-56) units/L Alkaline Phosphatase 72 (35-129) units/L Total Protein 6.5 (6.3-8.2) g/dL Albumin 2.8 L (3.9-5) g/dL Assessment and Plan 42-year-old male with 1. left lower extremity cellulitis/abscess 2. Poorly controlled Diabetes mellitus 3. sepsis 2/2 #1 Plan: 1. will perform incision and drainage of abscess at bedside. All risks were discussed with the patient and consent was signed and placed on the chart. 2. c/w IV antibiotics 3. PRN pain control 4. will obtain wound cultures during procedure 5. elevate LLE 6. wound care consulted and following 7. strict glucose control 8. consistent carb diet 9. DVT ppx - lovenox 10. D/W Dr. Anthony (ID). will cancel CT scan LLE as patient has abscess on physical exam.
--- NOTE | 2017-10-19 14:59 | Operative Report ---
Operative Report Operative Report: Date of procedure: 10/19/2017 Preprocedure diagnosis: Left lower extremity abscess Postprocedure diagnosis: Same as above Procedure performed: Incision and drainage of left lower extremity abscess Surgeon: Caty Rondon Anesthesia: Local Findings: 10 -15mL of pus and old hematoma evacuated Specimen: Wound culture Estimated blood loss: Less than 5 mL Complications: None HPI and indication: Patient is a 42-year-old male with diabetes which is poorly controlled who presented to the hospital with complaints of left lower extremity edema and pain and swelling near his outer ankle for several days. She denies any trauma to the area and does not know if he was bit by an insect. She noted the swollen area over his outer ankle to be draining blood and pus and was found to have an abscess. All risks of draining the abscess at the bedside were discussed and the patient agreed to proceed to an incision and drainage. Consent was signed and placed on chart. Procedure in detail: Patient was identified and a timeout was performed with nurse in the room. The patient was premedicated with 2 mg of IV Dilaudid. Consent was verified on the chart. The left ankle over the area of fluctuance was prepped with Betadine in the usual sterile fashion. 2% lidocaine was infiltrated into the skin and subcutaneous tissue at the intended incision site. Approximately 10 mL was used in total. A curvilinear incision was made using a 11 blade, connecting the 3 pinpoint areas that were draining pus over the area of fluctuance. Using a cotton tip applicator the wound was bluntly probed and all loculations broken up. There was drainage of approximately 10- 15 mL of purulent fluid and also old hematoma. Deep wound culture was obtained. The wound measured approximately 4 cm (width) by 0.5cm (length) x 3 cm (depth). There was no additional fluctuance noted. The wound was irrigated with saline solution and then packed with one piece of 1/4 inch iodoform packing. Hemostasis was ensured. The wound was covered with a sterile 4 x 4, ABD, and wrapped with Kerlix. The patient tolerated the procedure well. All sharps were disposed of appropriately.
[2017-10-19] MEDS: ZOSYN/NS 4.5GM/100ML 4.5 GM/100 ML VIAL IV SCH (21:23)
[2017-10-20 05:41] LABS: Basophils % (Auto) 0.5 % (0.0-1.8); Eosinophils % (Auto) 1.7 % (0.0-4.3); Hematocrit 38.1 % (35.5-45.6); Hemoglobin 12.2 gm/dl (11.8-15.2); Mean Corpuscular HGB Conc 32 % (32-34); Mean Corpuscular Hemoglobin 30 pg (28-32); Mean Corpuscular Volume 92 fl (84-94); Platelet Count 346 K/mm3 (140-440); Red Blood Count 4.14 M/mm3 (3.65-5.03); White Blood Count 7.7 K/mm3 (4.5-11.0)
[2017-10-20 06:03] LABS: Anion Gap 18 mmol/L; BUN/Creatinine Ratio 10; Blood Urea Nitrogen 6 mg/dL (9-20); Calcium 8.6 mg/dL (8.4-10.2); Carbon Dioxide 23 mmol/L (22-30); Chloride 100.2 mmol/L (98-107); Glucose 259 mg/dL (75-100); Potassium 4.1 mmol/L (3.6-5.0); Sodium 137 mmol/L (137-145)
[2017-10-20] MEDS: ZOSYN/NS 4.5GM/100ML 4.5 GM/100 ML VIAL IV SCH ×3 (06:03→23:23)
[2017-10-20] MEDS: VANCOMYCIN VIAL 1,750 MG in NACL 0.9% 500 ML 500 ML IV SCH ×2 (06:54→15:46)
[2017-10-20] MEDS ORDERED: LEVEMIR SUB-Q SCH (08:00)
[2017-10-20] MEDS: NOVOLOG SUB-Q SCH ×4 (08:23→23:29)
[2017-10-20] MEDS: LOVENOX SUB-Q SCH (09:27)
[2017-10-20] MEDS: PEPCID PO SCH ×2 (09:27→23:29)
[2017-10-20] MEDS: LASIX PO SCH (09:27)
--- NOTE | 2017-10-20 10:56 | Progress Note ---
Assessment and Plan Assessment: 1) Sepsis: Present on admission, manifested by fever, tachycardia. Etiology most likely left calf abscess/cellulitis. 2) Left lateral calf abscess / cellulitis: S/P bedside I+D on 10/19 gram stain + GPC 3) Diabetes-uncontrolled A1C=17 Plan: -follow-up wound cultures -wound care -leg elevation -continue unasyn and vancomycin -strict diabetes control -upon discharge will do if MRSA zyvox 600 mg po q12h total 10 days via [employer]'s patient assistance program Thank you Dr Pierre for your consultation, will follow up with you. Shoshana Lockwood MD Infectious Diseases Specialist [facility] ([facility]) M [phone] O [phone] Subjective Date of service: 10/20/17 Principal diagnosis: leg abscess Interval history: Feels better, no fever, underwent bedside I+D yesterday. Microbiology: Blood cultures: 10/18 ngtd Wound cultures: 10/19 GPC in clusters Current Antimicrobials: Unasyn 10/18 Vancomycin 10/18 Previous Antimicrobials: Objective - Exam Narrative Exam: General appearance: Alert in NAD, conversant Eyes: anicteric sclerae, moist conjunctivae; no lid-lag; PERRLA HENT: Atraumatic; oropharynx clear Neck: Trachea midline; supple, no thyromegaly or lymphadenopathy Lungs: CTA, with normal respiratory effort and no intercostal retractions CV: RRR, no murmurs Abdomen: Soft, non-tender; no masses or hepatosplenomegaly Extremities: +left lateral calf marked edema with surg wound covered with dressings Skin: Normal temperature, turgor and texture; no rash, ulcers or subcutaneous nodules Psych: Appropriate affect, alert and oriented to person, place and time. Neuro: alert and oriented x 3. Moving all extermities Lines: No CVL / PICC - Constitutional Vitals: Vital Signs Temp Pulse Resp BP Pulse Ox 98.1 F 88 18 137/94 98 10/20/17 07:17 10/20/17 07:17 10/20/17 07:17 10/20/17 07:17 10/20/17 07:17 Temperature -Last 24 Hours Temperature 98.1 F Temperature 99.1 F Temperature 97.9 F - Labs CBC & Chem 7: 10/20/17 05:08 10/20/17 05:08 Labs: Abnormal lab results 10/19/17 10/19/17 10/19/17 Range/Units 11:16 15:41 22:11 RDW (13.2-15.2) % [place] % (Auto) (0.0-7.3) % [place] # (0.0-0.8) K/mm3 BUN (9-20) mg/dL Creatinine (0.8-1.5) mg/dL Glucose (75-100) mg/dL POC Glucose 253 H 278 H 230 H (70-105) 10/20/17 10/20/17 10/20/17 Range/Units 05:08 05:08 05:44 RDW 13.0 L (13.2-15.2) % [place] % (Auto) 11.9 H (0.0-7.3) % [place] # 0.9 H (0.0-0.8) K/mm3 BUN 6 L (9-20) mg/dL Creatinine 0.6 L (0.8-1.5) mg/dL Glucose 259 H (75-100) mg/dL POC Glucose 247 H (70-105)
--- NOTE | 2017-10-20 13:52 | Progress Note ---
Assessment and Plan Assessment and plan: --Left leg abscess : s/p I&D Continue wound care IV antibiotics, follow cultures,ID the following --Left leg cellulitis; elevate the limb, supportive care, antibiotics --Type 2 diabetes mellitus; uncontrolled, hemoglobin A1c more than 17 Check sliding scale coverage and ADA diet, long-acting insulin Diabetic education, nutrition consult --Sepsis; secondary to cellulitis/diabetic wound/abscess Continue current antibiotics and follow cultures --Protein Calorie Malnutrition: Secondary to sepsis Albumin 2.8 , Nutrition supplements and supportive care --DVT prophylaxis; Lovenox Consults and recommendation noted and appreciated Plan of care discussed with the patient, verbalized understanding History Interval history: Patient seen and evaluated in the room medical records reviewed s/p incision and drainage , feels better Vital signs reviewed Hospitalist Physical - Constitutional Vitals: Temp Pulse Resp BP Pulse Ox 98.1 F 88 18 137/94 98 10/20/17 07:17 10/20/17 07:17 10/20/17 07:17 10/20/17 07:17 10/20/17 07:17 General appearance: Present: no acute distress, well-nourished, obese - EENT Eyes: Present: PERRL, EOM intact - Neck Neck: Present: supple, normal ROM - Respiratory Respiratory effort: normal Respiratory: negative: rales, rhonchi, wheezing - Cardiovascular Rhythm: regular Heart Sounds: Present: S1 & S2 - Extremities Extremities: no ischemia, abnormal (wound dressing in place) - Abdominal General gastrointestinal: soft, non-tender, non-distended, normal bowel sounds - Integumentary Integumentary: Present: clear, warm - Psychiatric Psychiatric: appropriate mood/affect, cooperative - Neurologic Neurologic: CNII-XII intact, moves all extremities Results - Labs CBC & Chem 7: 10/20/17 05:08 10/20/17 05:08 Labs: Laboratory Last Values WBC 7.7 K/mm3 (4.5-11.0) 10/20/17 05:08 RBC 4.14 M/mm3 (3.65-5.03) 10/20/17 05:08 Hgb 12.2 gm/dl (11.8-15.2) 10/20/17 05:08 Hct 38.1 % (35.5-45.6) 10/20/17 05:08 MCV 92 fl (84-94) 10/20/17 05:08 MCH 30 pg (28-32) 10/20/17 05:08 MCHC 32 % (32-34) 10/20/17 05:08 RDW 13.0 % (13.2-15.2) L 10/20/17 05:08 Plt Count 346 K/mm3 (140-440) 10/20/17 05:08 Lymph % (Auto) 26.0 % (13.4-35.0) 10/20/17 05:08 [place] % (Auto) 11.9 % (0.0-7.3) H 10/20/17 05:08 Eos % (Auto) 1.7 % (0.0-4.3) 10/20/17 05:08 Baso % (Auto) 0.5 % (0.0-1.8) 10/20/17 05:08 Lymph # 2.0 K/mm3 (1.2-5.4) 10/20/17 05:08 [place] # 0.9 K/mm3 (0.0-0.8) H 10/20/17 05:08 Eos # 0.1 K/mm3 (0.0-0.4) 10/20/17 05:08 Baso # 0.0 K/mm3 (0.0-0.1) 10/20/17 05:08 Seg Neutrophils % 59.9 % (40.0-70.0) 10/20/17 05:08 Seg Neutrophils # 4.6 K/mm3 (1.8-7.7) 10/20/17 05:08 ESR 65 mm/Hr (0-20) 10/18/17 14:33 Sodium 137 mmol/L (137-145) 10/20/17 05:08 Potassium 4.1 mmol/L (3.6-5.0) 10/20/17 05:08 Chloride 100.2 mmol/L (98-107) 10/20/17 05:08 Carbon Dioxide 23 mmol/L (22-30) 10/20/17 05:08 Anion Gap 18 mmol/L 10/20/17 05:08 BUN 6 mg/dL (9-20) L 10/20/17 05:08 Creatinine 0.6 mg/dL (0.8-1.5) L 10/20/17 05:08 Estimated GFR > 60 ml/min 10/20/17 05:08 BUN/Creatinine Ratio 10 % 10/20/17 05:08 Glucose 259 mg/dL (75-100) H 10/20/17 05:08 POC Glucose 287 (70-105) H 10/20/17 11:28 Hemoglobin A1c 17.0 % (4-6) H 10/19/17 05:08 Calcium 8.6 mg/dL (8.4-10.2) 10/20/17 05:08 Total Bilirubin 0.60 mg/dL (0.1-1.2) 10/19/17 05:08 AST 15 units/L (5-40) 10/19/17 05:08 ALT 26 units/L (7-56) 10/19/17 05:08 Alkaline Phosphatase 72 units/L (35-129) 10/19/17 05:08 C-Reactive Protein 30.90 mg/dL (0.00-1.30) H 10/18/17 14:33 Total Protein 6.5 g/dL (6.3-8.2) 10/19/17 05:08 Albumin 2.8 g/dL (3.9-5) L 10/19/17 05:08 Albumin/Globulin Ratio 0.8 % 10/19/17 05:08
--- NOTE | 2017-10-20 15:34 | Progress Note ---
Assessment and Plan 42-year-old male with 1. left lower extremity cellulitis/abscess s/p bedside I&D 10/19/17 2. Poorly controlled Diabetes mellitus 3. sepsis 2/2 #1 Plan: 1. cultures - staph aureus (prelim), f/u final cultures 2. continue abx and recs per ID 3. strict glucose control 4. PO pain control - will switch to percocet 5. keep LLE elevated while in bed 6. DVT ppx 7. wound care nurse on board Subjective Date of service: 10/20/17 Narrative: Pt seen and examined. No complaints. Pain is controlled. No f/c. Objective Vital Signs - 12hr 10/20/17 07:17 Temperature 98.1 F Pulse Rate 88 Respiratory 18 Rate Blood Pressure 137/94 O2 Sat by Pulse 98 Oximetry - General physical appearance Narrative Exam: Gen: AAOx3. NAD LLE: edema mildly improved. Dressing over lateral ankle wound taken down and one piece of packing removed. Seropurulent drainage on packing and dressing. Wound irrigated and no additional pus expressed. No bleeding. Repacked with one piece of mesalt. Induration is improved, no fluctuance around wound. Covered with 4x4 gauze, ABD pad and wrapped in kerlex. - Labs 10/20/17 05:08 10/20/17 05:08 Diabetes panel 10/20/17 Range/Units 05:08 Sodium 137 (137-145) mmol/L Potassium 4.1 (3.6-5.0) mmol/L Chloride 100.2 (98-107) mmol/L Carbon Dioxide 23 (22-30) mmol/L BUN 6 L (9-20) mg/dL Creatinine 0.6 L (0.8-1.5) mg/dL Glucose 259 H (75-100) mg/dL Calcium 8.6 (8.4-10.2) mg/dL Calcium panel 10/20/17 Range/Units 05:08 Calcium 8.6 (8.4-10.2) mg/dL Pituitary panel 10/20/17 Range/Units 05:08 Sodium 137 (137-145) mmol/L Potassium 4.1 (3.6-5.0) mmol/L Chloride 100.2 (98-107) mmol/L Carbon Dioxide 23 (22-30) mmol/L BUN 6 L (9-20) mg/dL Creatinine 0.6 L (0.8-1.5) mg/dL Glucose 259 H (75-100) mg/dL Calcium 8.6 (8.4-10.2) mg/dL Adrenal panel 10/20/17 Range/Units 05:08 Sodium 137 (137-145) mmol/L Potassium 4.1 (3.6-5.0) mmol/L Chloride 100.2 (98-107) mmol/L Carbon Dioxide 23 (22-30) mmol/L BUN 6 L (9-20) mg/dL Creatinine 0.6 L (0.8-1.5) mg/dL Glucose 259 H (75-100) mg/dL Calcium 8.6 (8.4-10.2) mg/dL
[2017-10-20] MEDS: PERCOCET 5/325 PO PRN (17:09)
[2017-10-21] MEDS: VANCOMYCIN VIAL 1,750 MG in NACL 0.9% 500 ML 500 ML IV SCH ×3 (00:23→15:26)
[2017-10-21] MEDS: ZOSYN/NS 4.5GM/100ML 4.5 GM/100 ML VIAL IV SCH ×2 (06:40→13:01)
[2017-10-21 06:44] LABS: Basophils % (Auto) 0.4 % (0.0-1.8); Hematocrit 37.4 % (35.5-45.6); Hemoglobin 12.2 gm/dl (11.8-15.2); Mean Corpuscular HGB Conc 33 % (32-34); Mean Corpuscular Hemoglobin 30 pg (28-32); Mean Corpuscular Volume 92 fl (84-94); Platelet Count 371 K/mm3 (140-440); Red Blood Count 4.07 M/mm3 (3.65-5.03); White Blood Count 5.7 K/mm3 (4.5-11.0)
[2017-10-21 06:55] LABS: Anion Gap 15 mmol/L; BUN/Creatinine Ratio 8; Blood Urea Nitrogen 5 mg/dL (9-20); Calcium 8.5 mg/dL (8.4-10.2); Carbon Dioxide 27 mmol/L (22-30); Chloride 99.2 mmol/L (98-107); Glucose 228 mg/dL (75-100); Potassium 4.1 mmol/L (3.6-5.0); Sodium 137 mmol/L (137-145)
[2017-10-21] MEDS: NOVOLOG SUB-Q SCH ×5 (09:08→22:37)
[2017-10-21] MEDS: LASIX PO SCH (09:09)
[2017-10-21] MEDS: PEPCID PO SCH ×2 (09:09→22:37)
[2017-10-21] MEDS: LOVENOX SUB-Q SCH (09:10)
--- NOTE | 2017-10-21 09:38 | Progress Note ---
Assessment and Plan Assessment and plan: --Sepsis; secondary to cellulitis/diabetic wound/abscess Continue current antibiotics and follow cultures --Staph aureus wound cultures; continue Vanco and Zosyn, ID following, contact isolation --Left leg abscess/cellulitis : s/p I&D Continue wound care --Type 2 diabetes mellitus; uncontrolled, hemoglobin A1c more than 17 Check sliding scale coverage and ADA diet, increase 70/30 long-acting insulin dose Diabetic education, nutrition consult --Protein Calorie Malnutrition: Secondary to sepsis Albumin 2.8 , Nutrition supplements and supportive care --DVT prophylaxis; Lovenox Possible home health nurse for disease monitoring at discharge Plan of care discussed with the patient and case management History Interval history: Patient seen and evaluated medical records reviewed Blood sugars slightly improved Wound cultures positive for staph, await sensitivities Patient has no new complaints Vital signs reviewed Hospitalist Physical - Constitutional Vitals: Temp Pulse Resp BP Pulse Ox 99.2 F 90 20 139/91 97 10/21/17 07:29 10/21/17 07:29 10/21/17 07:29 10/21/17 07:29 10/21/17 07:29 General appearance: Present: no acute distress, well-nourished, obese - EENT Eyes: Present: PERRL, EOM intact - Neck Neck: Present: supple, normal ROM - Respiratory Respiratory effort: normal Respiratory: negative: rales, rhonchi, wheezing - Cardiovascular Rhythm: regular Heart Sounds: Present: S1 & S2 - Extremities Extremities: no ischemia, No edema, abnormal (left lower extremity dressing intact, swelling slightly improved) - Abdominal General gastrointestinal: soft, non-tender, non-distended, normal bowel sounds - Integumentary Integumentary: Present: clear, warm - Psychiatric Psychiatric: appropriate mood/affect, cooperative - Neurologic Neurologic: CNII-XII intact, moves all extremities Results - Labs CBC & Chem 7: 10/21/17 06:21 10/21/17 06:21 Labs: Laboratory Last Values WBC 5.7 K/mm3 (4.5-11.0) 10/21/17 06:21 RBC 4.07 M/mm3 (3.65-5.03) 10/21/17 06:21 Hgb 12.2 gm/dl (11.8-15.2) 10/21/17 06:21 Hct 37.4 % (35.5-45.6) 10/21/17 06:21 MCV 92 fl (84-94) 10/21/17 06:21 MCH 30 pg (28-32) 10/21/17 06:21 MCHC 33 % (32-34) 10/21/17 06:21 RDW 13.0 % (13.2-15.2) L 10/21/17 06:21 Plt Count 371 K/mm3 (140-440) 10/21/17 06:21 Lymph % (Auto) 27.0 % (13.4-35.0) 10/21/17 06:21 [place] % (Auto) 11.9 % (0.0-7.3) H 10/21/17 06:21 Eos % (Auto) 2.0 % (0.0-4.3) 10/21/17 06:21 Baso % (Auto) 0.4 % (0.0-1.8) 10/21/17 06:21 Lymph # 1.5 K/mm3 (1.2-5.4) 10/21/17 06:21 [place] # 0.7 K/mm3 (0.0-0.8) 10/21/17 06:21 Eos # 0.1 K/mm3 (0.0-0.4) 10/21/17 06:21 Baso # 0.0 K/mm3 (0.0-0.1) 10/21/17 06:21 Seg Neutrophils % 58.7 % (40.0-70.0) 10/21/17 06:21 Seg Neutrophils # 3.3 K/mm3 (1.8-7.7) 10/21/17 06:21 ESR 65 mm/Hr (0-20) 10/18/17 14:33 Sodium 137 mmol/L (137-145) 10/21/17 06:21 Potassium 4.1 mmol/L (3.6-5.0) 10/21/17 06:21 Chloride 99.2 mmol/L (98-107) 10/21/17 06:21 Carbon Dioxide 27 mmol/L (22-30) 10/21/17 06:21 Anion Gap 15 mmol/L 10/21/17 06:21 BUN 5 mg/dL (9-20) L 10/21/17 06:21 Creatinine 0.6 mg/dL (0.8-1.5) L 10/21/17 06:21 Estimated GFR > 60 ml/min 10/21/17 06:21 BUN/Creatinine Ratio 8 % 10/21/17 06:21 Glucose 228 mg/dL (75-100) H 10/21/17 06:21 POC Glucose 197 (70-105) H 10/21/17 05:17 Hemoglobin A1c 17.0 % (4-6) H 10/19/17 05:08 Calcium 8.5 mg/dL (8.4-10.2) 10/21/17 06:21 Total Bilirubin 0.60 mg/dL (0.1-1.2) 10/19/17 05:08 AST 15 units/L (5-40) 10/19/17 05:08 ALT 26 units/L (7-56) 10/19/17 05:08 Alkaline Phosphatase 72 units/L (35-129) 10/19/17 05:08 C-Reactive Protein 30.90 mg/dL (0.00-1.30) H 10/18/17 14:33 Total Protein 6.5 g/dL (6.3-8.2) 10/19/17 05:08 Albumin 2.8 g/dL (3.9-5) L 10/19/17 05:08 Albumin/Globulin Ratio 0.8 % 10/19/17 05:08 Vancomycin Trough 14.5 ug/mL (5.0-20.0) 10/20/17 14:30
--- NOTE | 2017-10-21 13:02 | Progress Note ---
Assessment and Plan Assessment: 1) Sepsis: Present on admission, manifested by fever, tachycardia. Etiology most likely left calf abscess/cellulitis. 2) Left lateral calf abscess / cellulitis: S/P bedside I+D on 10/19 +Staph aureus 3) Diabetes-uncontrolled A1C=17 Plan: -follow-up wound cultures -wound care -leg elevation -stop zosyn -continue vancomycin -strict diabetes control -upon discharge will do if MRSA zyvox 600 mg po q12h total 10 days via [employer]'s patient assistance program Thank you Dr Pierre for your consultation, will follow up with you. Shoshana Lockwood MD Infectious Diseases Specialist [facility] ([facility]) M [phone] O [phone] Subjective Date of service: 10/21/17 Principal diagnosis: leg abscess Interval history: Feels better, no fever, leg pain minimal Microbiology: Blood cultures: 10/18 ngtd Wound cultures: 10/19 Staph aureus Current Antimicrobials: zosyn 10/18 Vancomycin 10/18 Previous Antimicrobials: Objective - Exam Narrative Exam: General appearance: Alert in NAD, conversant Eyes: anicteric sclerae, moist conjunctivae; no lid-lag; PERRLA HENT: Atraumatic; oropharynx clear Neck: Trachea midline; supple, no thyromegaly or lymphadenopathy Lungs: CTA, with normal respiratory effort and no intercostal retractions CV: RRR, no murmurs Abdomen: Soft, non-tender; no masses or hepatosplenomegaly Extremities: +left lateral calf marked edema with surg wound covered with dressings Skin: Normal temperature, turgor and texture; no rash, ulcers or subcutaneous nodules Psych: Appropriate affect, alert and oriented to person, place and time. Neuro: alert and oriented x 3. Moving all extermities Lines: No CVL / PICC - Constitutional Vitals: Vital Signs Temp Pulse Resp BP Pulse Ox 99.2 F 90 20 139/91 97 10/21/17 07:29 10/21/17 07:29 10/21/17 07:29 10/21/17 07:29 10/21/17 07:29 Temperature -Last 24 Hours Temperature 99.2 F Temperature 98.5 F Temperature 99.7 F - Labs CBC & Chem 7: 10/21/17 06:21 10/21/17 06:21 Labs: Abnormal lab results 10/20/17 10/20/17 10/21/17 Range/Units 15:53 21:14 05:17 RDW (13.2-15.2) % [place] % (Auto) (0.0-7.3) % BUN (9-20) mg/dL Creatinine (0.8-1.5) mg/dL Glucose (75-100) mg/dL POC Glucose 279 H 248 H 197 H (70-105) 10/21/17 10/21/17 10/21/17 Range/Units 06:21 06:21 11:19 RDW 13.0 L (13.2-15.2) % [place] % (Auto) 11.9 H (0.0-7.3) % BUN 5 L (9-20) mg/dL Creatinine 0.6 L (0.8-1.5) mg/dL Glucose 228 H (75-100) mg/dL POC Glucose 220 H (70-105)
[2017-10-21] MEDS: PERCOCET 5/325 PO PRN ×2 (13:15→22:41)
--- NOTE | 2017-10-21 15:01 | Progress Note ---
Assessment and Plan 42-year-old male with 1. left lower extremity cellulitis/abscess s/p bedside I&D 10/19/17 2. Poorly controlled Diabetes mellitus 3. sepsis 2/2 #1 Plan: 1. cultures - staph aureus (prelim) 2. continue abx and recs per ID 3. strict glucose control 4. PO pain control 5. keep LLE elevated while in bed 6. DVT ppx 7. wound care nurse on board 8. ok for dc when cleared by medicine and ID 9. may follow up with me in office on Thursday10/27/17 - pt to make appointment Subjective Date of service: 10/21/17 Narrative: Exam examined at bedside. He has no complaints. His pain is controlled. No fevers, chills. Objective Vital Signs - 12hr 10/21/17 07:29 Temperature 99.2 F Pulse Rate 90 Respiratory 20 Rate Blood Pressure 139/91 O2 Sat by Pulse 97 Oximetry - General physical appearance Narrative Exam: Gen.: Awake, alert, oriented 3. Left lower extremity wound: The dressing was removed and one piece of packing removed. There is some skin breakdown and slough at the wound edges which was trimmed with scissors. There is no further fluctuance. The edema is improved. The wound is irrigated with saline and packed with quarter inch iodoform packing, one piece. The wound now measures 4 cm (width) x 3 (lenght) cm x 2 cm (depth). The wound was covered with 4 x 4 gauze ABDs and wrapped with Kerlix. - Labs 10/21/17 06:21 10/21/17 06:21 Diabetes panel 10/21/17 Range/Units 06:21 Sodium 137 (137-145) mmol/L Potassium 4.1 (3.6-5.0) mmol/L Chloride 99.2 (98-107) mmol/L Carbon Dioxide 27 (22-30) mmol/L BUN 5 L (9-20) mg/dL Creatinine 0.6 L (0.8-1.5) mg/dL Glucose 228 H (75-100) mg/dL Calcium 8.5 (8.4-10.2) mg/dL Calcium panel 10/21/17 Range/Units 06:21 Calcium 8.5 (8.4-10.2) mg/dL Pituitary panel 10/21/17 Range/Units 06:21 Sodium 137 (137-145) mmol/L Potassium 4.1 (3.6-5.0) mmol/L Chloride 99.2 (98-107) mmol/L Carbon Dioxide 27 (22-30) mmol/L BUN 5 L (9-20) mg/dL Creatinine 0.6 L (0.8-1.5) mg/dL Glucose 228 H (75-100) mg/dL Calcium 8.5 (8.4-10.2) mg/dL Adrenal panel 10/21/17 Range/Units 06:21 Sodium 137 (137-145) mmol/L Potassium 4.1 (3.6-5.0) mmol/L Chloride 99.2 (98-107) mmol/L Carbon Dioxide 27 (22-30) mmol/L BUN 5 L (9-20) mg/dL Creatinine 0.6 L (0.8-1.5) mg/dL Glucose 228 H (75-100) mg/dL Calcium 8.5 (8.4-10.2) mg/dL
[2017-10-22] MEDS: VANCOMYCIN VIAL 1,750 MG in NACL 0.9% 500 ML 500 ML IV SCH (00:46)
[2017-10-22] MEDS: PERCOCET 5/325 PO PRN (08:35)
[2017-10-22] MEDS: NOVOLOG SUB-Q SCH ×3 (08:38→20:37)
[2017-10-22] MEDS: LOVENOX SUB-Q SCH (11:07)
[2017-10-22] MEDS: LASIX PO SCH (11:07)
[2017-10-22] MEDS: PEPCID PO SCH (11:07)
--- NOTE | 2017-10-22 11:53 | Progress Note ---
Assessment and Plan Assessment: 1) Sepsis: resolved. Etiology most likely left calf abscess/cellulitis. 2) Left lateral calf abscess / cellulitis: S/P bedside I+D on 10/19 +Staph aureus - prelim report +MRSA 3) Diabetes-uncontrolled A1C=17 Plan: -continue vancomycin -strict diabetes control -upon discharge will do zyvox 600 mg po q12h total 14 days via [employer]'s patient assistance program -needs left leg compression wrapping / wound care clinic I am signing off Thank you Dr Pierre for your consultation, will follow up with you. Shoshana Lockwood MD Infectious Diseases Specialist [facility] ([facility]) M [phone] O [phone] Subjective Date of service: 10/22/17 Principal diagnosis: leg abscess Interval history: Feels better, no fever Microbiology: Blood cultures: 10/18 ngtd Wound cultures: 10/19 Staph aureus - prelim MRSA Current Antimicrobials: zosyn 10/18 Vancomycin 10/18 Previous Antimicrobials: Objective - Exam Narrative Exam: General appearance: Alert in NAD, conversant Eyes: anicteric sclerae, moist conjunctivae; no lid-lag; PERRLA HENT: Atraumatic; oropharynx clear Neck: Trachea midline; supple, no thyromegaly or lymphadenopathy Lungs: CTA, with normal respiratory effort and no intercostal retractions CV: RRR, no murmurs Abdomen: Soft, non-tender; no masses or hepatosplenomegaly Extremities: +left lateral calf marked edema with surg wound covered with dressings Skin: Normal temperature, turgor and texture; no rash, ulcers or subcutaneous nodules Psych: Appropriate affect, alert and oriented to person, place and time. Neuro: alert and oriented x 3. Moving all extermities Lines: No CVL / PICC - Constitutional Vitals: Vital Signs Temp Pulse Resp BP Pulse Ox 98.3 F 101 H 20 123/86 98 10/22/17 07:21 10/22/17 07:21 10/22/17 07:21 10/22/17 07:21 10/22/17 07:21 Temperature -Last 24 Hours Temperature 98.3 F Temperature 98.6 F Temperature 98.4 F - Labs CBC & Chem 7: 10/21/17 06:21 10/21/17 06:21 Labs: Abnormal lab results 10/21/17 10/21/17 10/22/17 Range/Units 16:49 21:06 05:24 POC Glucose 245 H 275 H 152 H (70-105) 10/22/17 Range/Units 11:23 POC Glucose 209 H (70-105)
--- NOTE | 2017-10-22 12:51 | Progress Note ---
Assessment and Plan 42-year-old male with 1. left lower extremity cellulitis/abscess s/p bedside I&D 10/19/17 2. Poorly controlled Diabetes mellitus 3. sepsis 2/2 #1 Plan: 1. cultures - MRSA 2. continue IV abx, zyvox on dc per ID 3. strict glucose control 4. PO pain control 5. keep LLE elevated while in bed 6. DVT ppx 7. daily wound care - dressing changed with patient's mother at bedside, verbal instruction given 8. ok for dc when cleared by medicine 9. may follow up with me in office on Thursday10/27/17 - pt to make appointment Subjective Date of service: 10/22/17 Narrative: Pt seen and examined. No complaints. No f/c. Pain is controlled. He is ambulating Objective Vital Signs - 12hr 10/22/17 07:21 Temperature 98.3 F Pulse Rate 101 H Respiratory 20 Rate Blood Pressure 123/86 O2 Sat by Pulse 98 Oximetry - General physical appearance Narrative Exam: Gen: AAOx3. NAD LLE wound: dressing removed and one piece of iodoform packing removed. Wound irrigated with salined. No fluctuance, no drainage. Induration around wound much improved. 1+ pitting edema of extremity. Repacked wound with one piece of 1 /4 inch iodoform packing, covered with 5x2bcmew, abd, and kerlex. - Labs 10/21/17 06:21 10/21/17 06:21
--- NOTE | 2017-10-22 13:01 | Discharge Summary ---
<CHARISMA HARPER - Last Filed: 10/22/17 13:19> Providers - Providers Date of Admission: 10/18/17 14:26 Attending physician: MADISON HYDE 10/18/17 16:46 Consult to Physician [CONS] Routine Consulting Provider: VIRGIE HERNADEZ Reason For Exam: Cellulitis Place consult to:: dr. butt Notified:: md Phone number called:: [phone] Was contact made?: Yes If yes, spoke with:: dr. butt Time called:: 17:58 10/19/17 06:51 Consult to Wound/ET Nurse [CONS] Routine Reason For Exam: wound eval 10/19/17 09:05 Consult to Physician [CONS] Routine Consulting Provider: CHARISMA HARPER Reason For Exam: LLE abscess/cellulitis Place consult to:: dr. 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 Shower and rinse wound with soap and water gently. Pat wound and skin dry, do not scrub. Gently pack wound with one piece of 1/4 inch iodoform packing (as shown in hospital). Cover with gauze and wrap with kerlix. Perform wound care daily.) Special Instructions: record blood sugar diary Follow up with: ABIEL HERNANDEZ MD [Primary Care Provider] - 7 Days CHARISMA HARPER DO [Staff Physician] - 10/27/17 <MADISON HYDE - Last Filed: 10/22/17 15:33> Providers - Providers Date of Admission: 10/18/17 14:26 Date of discharge: 10/22/17 Attending physician: MADISON HYDE 10/18/17 16:46 Consult to Physician [CONS] Routine Consulting Provider: VIRGIE HERNADEZ Reason For Exam: Cellulitis Place consult to:: dr. butt Notified:: Phone number called:: [phone] Was contact made?: Yes If yes, spoke with:: dr. butt Time called:: 17:58 10/19/17 06:51 Consult to Wound/ET Nurse [CONS] Routine Reason For Exam: wound eval 10/19/17 09:05 Consult to Physician [CONS] Routine Consulting Provider: CHARISMA HARPER Reason For Exam: LLE abscess/cellulitis Place consult to:: dr. 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 Additional Physician Instructions: please request [employer]'s patient assistance program for zyvox 600 mg PO q12h total 14 days Primary care physician: ABIEL HERNANDEZ Hospitalization Hospital course: See dictated D/s in reports - Discharge Diagnoses (1) Left leg cellulitis Status: Acute (2) Leg edema, left Status: Acute (3) Uncontrolled diabetes mellitus Status: Chronic Qualifiers: Diabetes mellitus type: type 2 (4) DVT prophylaxis Status: Acute Core Measure Documentation - Palliative Care Palliative Care/ Comfort Measures: Not Applicable - Core Measures Any of the following diagnoses?: none Exam - Constitutional Vitals: Temp Pulse Resp BP Pulse Ox 98.3 F 101 H 20 123/86 98 10/22/17 07:21 10/22/17 07:21 10/22/17 07:21 10/22/17 07:21 10/22/17 07:21 General appearance: Present: no acute distress, well-nourished - EENT Eyes: Present: PERRL ENT: hearing intact, clear oral mucosa - Neck Neck: Present: supple, normal ROM - Respiratory Respiratory effort: normal Respiratory: bilateral: CTA - Cardiovascular Heart Sounds: Present: S1 & S2. Absent: rub, click - Extremities Extremities: pulses symmetrical, No edema Extremity abnormal: other (LLE I/d site healing well) Peripheral Pulses: within normal limits - Abdominal General gastrointestinal: Present: soft, non-tender, non-distended, normal bowel sounds Male genitourinary: Present: normal - Integumentary Integumentary: Present: clear, warm, dry - Musculoskeletal Musculoskeletal: gait normal, strength equal bilaterally - Psychiatric Psychiatric: appropriate mood/affect, intact judgment & insight - Neurologic Neurologic: CNII-XII intact, moves all extremities Plan Activity: no restrictions Weight Bearing Status: Weight Bear as Tolerated Diet: diabetic Wound: keep clean and dry, change dressing Special Instructions: record blood sugar diary
[2017-10-22 15:51] VITALS: BP 143/95
--- NOTE | 2017-10-22 16:08 | Discharge Summary ---
HISTORY OF PRESENT ILLNESS: The patient was admitted for severe left lower extremity cellulitis, sepsis, and uncontrolled diabetes. The patient had a hemoglobin A1c of 17. The patient was initiated on insulin. Surgery consult was initiated and Infectious Disease consult was requested. The patient had an I and D done on 10/19/2017. The patient was medicated with 2 mg of IV Dilaudid and 2% lidocaine was infiltrated into the skin at the intended incision site, 10 mL was used in total, approximately 10-15 mL of purulent fluid was drained. Deep wound culture was obtained. Wound was covered with a sterile 4 x 4 dressing and wrapped with Kerlix. The patient tolerated the procedure well. The patient was continued on vancomycin. Zosyn was stopped. Zyvox 600 mg for a total of 14 days was prescribed. The patient did well with insulin and antibiotics. The patient was then continued on vancomycin till discharge. The patient needs to have a strict diabetes control. The patient's blood sugars were reasonable at the time of discharge at 152 and 209, but the patient was counseled about the dangers of high blood sugars on the cellulitis. The patient was prescribed 30 units in the morning and 20 units in the evening of insulin 70/30. Also, follow up with [facility] or [facility] as outpatient and follow up with Dr. Gibson for the I and D postoperatively. DISCHARGE DIAGNOSES: 1. Sepsis. 2. Left leg cellulitis and abscess. 3. Uncontrolled diabetes. 4. Obesity. DISCHARGE MEDICATIONS: Insulin 70/30, 30 units in the morning, 20 units in the evening, Zyvox 600 mg q. 12 hours and insulin syringes and also Percocet 7.5/325 q. 8 hours p.r.n. JOB# [id number] VSM/NTS
== END 2017-10-22 16:00 | disposition home or self-care (01) | DRG 854 ==
LOC: ED 10:31 → 3A 14:26
PROVIDERS: ADMIT Internal Medicine; ATTEND Internal Medicine
PROC: 0J9P0ZZ Drainage of Left Lower Leg Subcutaneous Tissue and Fascia, Open Approach (ICD-10-PCS; principal; 2017-10-19)
DX: A41.9 Sepsis, unspecified organism (principal); L03.116 Cellulitis of left lower limb; E46 Unspecified protein-calorie malnutrition; L02.416 Cutaneous abscess of left lower limb; E11.65 Type 2 diabetes mellitus with hyperglycemia
CPT/HCPCS: 36415; 80048; 80053; 80202; 82962; 83036; 85025; 85027; 85652; 86140; 86403; 87040; 87076; 87116; 87186; 96374; 96375; J0295; J1170; J1650; J1815; J1885; J2270; J2405; J2543; J3370; J7030; J7040

== ENCOUNTER 2020-10-26 11:50 | Emergency (ER) | payer OTHER ==
[2020-10-26 12:39] VITALS: BP 136/91
[2020-10-26] MEDS ORDERED: KETOROLAC 60 MG/2 ML INJ IM ONE (13:04)
[2020-10-26 13:26] LABS: Bilirubin,Urine NEG (Negative); Blood,Urine NEG (Negative); Color,Urine Yellow (Yellow); Mucus,Urine FEW /HPF; Protein,Urine <15 mg/dL mg/dL (Negative); Urobilinogen,Urine < 2.0 mg/dL (<2.0)
--- NOTE | 2020-10-26 13:49 | Emergency Department Report ---
ED Back Pain/Injury HPI - General Chief Complaint: Back Pain/Injury Stated Complaint: BACK PAIN Time Seen by Provider: 10/26/20 13:03 Source: patient Limitations: No Limitations - History of Present Illness Initial Comments: This is a 45-year-old male nontoxic, well nourished in appearance, no acute signs of distress presents to the ED with c/o of acute on chronic lower back pa in. 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 Patient denies any radiation of pain. Patient denies any trauma. Denies any bladder or bowel instability. Patient denies any urinary symptoms. Denies any fever, chills, nausea, vomiting, headache, stiff neck, chest pain or shortness of breath. Patient denies any numbness or tingling. Denies any allergies. PMH includes HTN. MD Complaint: back pain -: days(s) Similar Symptoms Previously: Yes Radiation: none Severity: mild Severity scale (0 -10): 3 Quality: aching Consistency: intermittent Improves With: immobilization, sitting upright Worsens With: movement, walking Context: while lifting, turning/twisting Associated Symptoms: denies other symptoms. denies: confusion, weakness, chest pain, numbness, difficulty walking, cough, difficulty urinating, diaphoresis, incontinence, fever/chills, constipation, headaches, abdominal pain, loss of appetite, malaise, nausea/vomiting, rash, seizure, shortness of breath, syncope - Related Data Previous Rx's Medication Instructions Recorded Last Taken Type glipiZIDE [Glipizide] 5 mg PO BID #60 tablet 10/22/18 Unknown Rx metFORMIN [Glucophage] 500 mg PO BID #60 tablet 10/22/18 Unknown Rx Cyclobenzaprine [Flexeril] 10 mg PO QHS PRN #10 tablet 10/26/20 Unknown Rx Naproxen 500 mg PO Q12H PRN #12 tablet 10/26/20 Unknown Rx Allergies Allergy/AdvReac Type Severity Reaction Status Date / Time No Known Allergies Allergy Verified 07/04/16 04:05 ED Review of Systems ROS: Stated complaint: BACK PAIN Other details as noted in HPI Comment: All other systems reviewed and negative Constitutional: denies: chills, fever Eyes: denies: eye pain, eye discharge, vision change ENT: denies: ear pain, throat pain Respiratory: denies: cough, shortness of breath, wheezing Cardiovascular: denies: chest pain, palpitations Endocrine: no symptoms reported Gastrointestinal: denies: abdominal pain, nausea, diarrhea Genitourinary: denies: urgency, dysuria Musculoskeletal: back pain. denies: joint swelling, arthralgia Skin: denies: rash, lesions Neurological: denies: headache, weakness, paresthesias Psychiatric: denies: anxiety, depression Hematological/Lymphatic: denies: easy bleeding, easy bruising ED Past Medical Hx - Past Medical History Previous Medical History?: Yes Hx Diabetes: Yes - Surgical History Past Surgical History?: Yes Additional Surgical History: surgery on leg s/t staph infection 2017 - Social History Smoking Status: Never Smoker Substance Use Type: None - Medications Home Medications: Home Medications Medication Instructions Recorded Confirmed Last Taken Type glipiZIDE [Glipizide] 5 mg PO BID #60 tablet 10/22/18 Unknown Rx metFORMIN [Glucophage] 500 mg PO BID #60 tablet 10/22/18 Unknown Rx Cyclobenzaprine [Flexeril] 10 mg PO QHS PRN #10 tablet 10/26/20 Unknown Rx Naproxen 500 mg PO Q12H PRN #12 tablet 10/26/20 Unknown Rx ED Physical Exam - General Limitations: No Limitations General appearance: alert, in no apparent distress - Head Head exam: Present: atraumatic, normocephalic - Eye Eye exam: Present: normal appearance - Neck Neck exam: Present: normal inspection, full ROM. Absent: tenderness, meningismus, lymphadenopathy - Respiratory Respiratory exam: Absent: respiratory distress - Cardiovascular Cardiovascular Exam: Present: regular rate - GI/Abdominal GI/Abdominal exam: Present: soft, normal bowel sounds. Absent: distended, tenderness, guarding, rebound, rigid, diminished bowel sounds - Extremities Exam Extremities exam: Present: normal inspection, full ROM - Back Exam Back exam: Present: normal inspection, full ROM, paraspinal tenderness (right sided lumbar paraspinal). Absent: tenderness, CVA tenderness (R), CVA tenderness (L), muscle spasm, vertebral tenderness, rash noted - Expanded Back Exam Expanded Back exam: Absent: saddle anesthesia Back exam: Negative Straight Leg Raising: Left, Right - Neurological Exam Neurological exam: Present: alert, oriented X3, normal gait - Psychiatric Psychiatric exam: Present: normal affect, normal mood - Skin Skin exam: Present: warm, dry, intact, normal color. Absent: rash ED Course Vital Signs 10/26/20 10/26/20 12:36 13:22 Temperature 98.4 F Pulse Rate 108 H Respiratory 18 20 Rate Blood Pressure 136/91 O2 Sat by Pulse 97 Oximetry - Reevaluation(s) Reevaluation #1: 10/26/20 13:47 Patient is speaking in full sentences with no signs of distress noted. ED Medical Decision Making - Lab Data Lab Results 10/26/20 Range/Units 13:12 Urine Color Yellow (Yellow) Urine Turbidity Clear (Clear) Urine pH 5.0 (5.0-7.0) Ur Specific [place] 1.030 (1.003-1.030) Urine Protein <15 mg/dl (Negative) mg/dL Urine Glucose (UA) >=500 (Negative) mg/dL Urine Ketones Neg (Negative) mg/dL Urine Blood Neg (Negative) Urine Nitrite Neg (Negative) Urine Bilirubin Neg (Negative) Urine Urobilinogen < 2.0 (<2.0) mg/dL Ur Leukocyte Esterase Neg (Negative) Urine WBC (Auto) 2.0 (0.0-6.0) /HPF Urine RBC (Auto) 2.0 (0.0-6.0) /HPF Urine Mucus Few /HPF - Medical Decision Making This is a 45-year-old male that presents with low back strain. Patient is stable was examined by me. There is no spinal tenderness. There is no cauda equina syndrome during examination. No bladder or bowel instability. Patient received Toradol 60 mg IM in the ED which stated that his symptoms has resolved and subsided. Patient is discharged with muscle relaxant and Motrin. Patient was instructed not to operate any machinery while taking muscle relaxant as they cause her drowsiness. Patient was referred to Follow-up with a primary care doctor in 3-5 days or if symptoms worsen and continue return to emergency room as soon as possible. At time of discharge, the patient does not seem toxic or ill in appearance. No acute signs of distress noted. Patient agrees to discharge treatment plan of care. No further questions noted by the patient. This chart is dictated with using [email or web address] D[employer] Critical care attestation.: If time is entered above; I have spent that time in minutes in the direct care of this critically ill patient, excluding procedure time. ED Disposition Clinical Impression: Low back strain Qualifiers: Encounter type: initial encounter Qualified Code(s): S39.012A - Strain of muscle, fascia and tendon of lower back, initial encounter Disposition: TO HOME OR SELFCARE Is pt being admited?: No Does the pt Need Aspirin: No Condition: Stable Instructions: Lumbosacral Strain, Cyclobenzaprine tablets Additional Instructions: Follow-up with your primary care doctor in 3-5 days or if symptoms worsen such as bladder or bowel stability, chest pain, short of breath, numbness or tingling sensation in extremities, headache, dizziness, visual changes, nausea vomiting, or abdominal pain, return back to emergency room as was possible. Take naproxen and Flexeril as prescribed. Do not operate heavy machinery while taking Flexeril due to sedation Prescriptions: Cyclobenzaprine [Flexeril] 10 mg PO QHS PRN #10 tablet PRN Reason: Muscle Spasm Naproxen 500 mg PO Q12H PRN #12 tablet PRN Reason: Pain , Severe (7-10) Referrals: JOSÉ FITZGERALD MD [Primary Care Provider] - 3-5 Days KALYN PITTS MD [Staff Physician] - 3-5 Days [facility] [Provider Group] - 3-5 Days Forms: Work/School Release Form(ED) Time of Disposition: 13:49
== END 2020-10-26 14:53 | disposition home or self-care (01) ==
LOC: ED 11:50
DX: S39.012A Strain of muscle, fascia and tendon of lower back, initial encounter (principal); E11.9 Type 2 diabetes mellitus without complications; Z98.890 Other specified postprocedural states; Z79.84 Long term (current) use of oral hypoglycemic drugs; Z79.899 Other long term (current) drug therapy; X50.1XXA Overexertion from prolonged static or awkward postures, initial encounter; Y93.89 Activity, other specified; Y92.89 Other specified places as the place of occurrence of the external cause; Y99.8 Other external cause status
CPT/HCPCS: 81001; 96372; 99283; J1885

== ENCOUNTER 2020-12-30 14:06 | Emergency (ER) | payer OTHER ==
[2020-12-30 14:26] VITALS: BP 161/96
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
== END 2020-12-30 15:19 | disposition home or self-care (01) ==
LOC: ED 14:06
DX: S39.012A Strain of muscle, fascia and tendon of lower back, initial encounter (principal); E11.9 Type 2 diabetes mellitus without complications; Z79.899 Other long term (current) drug therapy; Z98.890 Other specified postprocedural states; V49.49XA Driver injured in collision with other motor vehicles in traffic accident, initial encounter; Y92.410 Unspecified street and highway as the place of occurrence of the external cause; Y93.89 Activity, other specified; Y99.8 Other external cause status
CPT/HCPCS: 72100; 99283